=== PATIENT | female | born 1980 | race Caucasian/White ===

== ENCOUNTER 2020-11-06 08:18 | Inpatient (IN) ==
[2020-11-06] MEDS ORDERED: Buffered Lidocaine 1% SYRIN 1 ml INTRADERM ONE (08:48)
[2020-11-06] MEDS ORDERED: Lactated Ringers 1000 ml BAG 1,000 ML IV ONE (08:48)
[2020-11-06 13:58] LABS: Urine Benzodiazepine Screen None Detected (None Detect); Urine Cannabinoids Screen Presumptive Positive (None Detect); Urine Opiates Screen None Detected (None Detect)
[2020-11-06] MEDS ORDERED: Dinoprostone 10 MG VAG.SUPP VAGINAL ONE (21:27)
[2020-11-06] MEDS ORDERED: Promethazine INJ(RESTRICTED) 25 MG/ML 1 ml VIAL IM PRN (23:44)
[2020-11-06] MEDS ORDERED: Morphine 10 MG/ML VIAL (1 ml) IM ONE (23:45)
[2020-11-07 09:32] LABS: ABS Lymphocytes 1.2 10^3/ul (1.0-4.8); ABS Monocytes 0.7 10^3/ul (0-0.8); ABS Neutrophils 11.7 10^3/ul (1.5-7.7); Eosinophil % 0.4 %; Hematocrit 37 % (35-47); Hemoglobin 12.8 g/dL (12.0-16.0); Lymphocyte % 8.4 %; Mean Corpuscular HGB Conc 34 g/dL (31-36); Mean Corpuscular Hemoglobin 33 pg (27-31); Mean Corpuscular Volume 95 fL (80-97); Mean Platelet Volume 10.1 fL (7.4-10.4); Platelet Count 161 10^3/uL (150-450); Red Blood Count 3.94 10^6 /uL (3.70-4.87); Red Cell Distribution Width 14 % (10-15); White Blood Count 13.7 10^3/uL (3.5-10.8)
[2020-11-07] MEDS: Oxytocin in LR 20 UNITS/1,000 ML BAG IVPB SCH (10:11)
[2020-11-07] MEDS ORDERED: Promethazine INJ(RESTRICTED) 25 MG/ML 1 ml VIAL ONE (23:30)
[2020-11-07] MEDS ORDERED: Morphine 10 MG/ML VIAL (1 ml) ONE (23:30)
[2020-11-07] MEDS ORDERED: Morphine 10 MG/ML VIAL (1 ml) IV ONE (23:35)
[2020-11-07] MEDS ORDERED: Promethazine INJ(RESTRICTED) 25 MG/ML 1 ml VIAL IV PRN (23:35)
[2020-11-08] MEDS: Lactated Ringers 1000 ml BAG 1,000 ML IV SCH ×2 (10:24→21:00)
[2020-11-08] MEDS: Oxytocin in LR 20 UNITS/1,000 ML BAG IVPB SCH (10:35)
[2020-11-08] MEDS: Lidocaine 2% JELLY 6 ML TOPICAL ONE (17:04)
[2020-11-08] MEDS ORDERED: OBEPIDURAL 250 ML EPIDURAL ONE (20:17)
[2020-11-08 20:37] LABS: ABS Eosinophils 0.1 10^3/ul (0-0.6); ABS Lymphocytes 1.2 10^3/ul (1.0-4.8); ABS Monocytes 0.7 10^3/ul (0-0.8); ABS Neutrophils 6.1 10^3/ul (1.5-7.7); Eosinophil % 1.1 %; Hematocrit 37 % (35-47); Hemoglobin 13.2 g/dL (12.0-16.0); Lymphocyte % 14.7 %; Mean Corpuscular HGB Conc 36 g/dL (31-36); Mean Corpuscular Hemoglobin 33 pg (27-31); Mean Corpuscular Volume 94 fL (80-97); Mean Platelet Volume 9.7 fL (7.4-10.4); Platelet Count 153 10^3/uL (150-450); Red Blood Count 3.95 10^6 /uL (3.70-4.87); Red Cell Distribution Width 14 % (10-15); White Blood Count 8.1 10^3/uL (3.5-10.8)
[2020-11-08] MEDS ORDERED: Sodium Citrate/Citric Acid LIQ 15 ML UDC PO PRN (21:56)
[2020-11-08] MEDS ORDERED: Phenylephrine 40 mcg/mL 10mL (400mcg) SYRINGE IV PUSH PRN ×2 (21:56)
[2020-11-08] MEDS ORDERED: EPHEDrine (Pressors) 50 MG/ML VIAL IV PUSH PRN ×2 (21:56)
[2020-11-08] MEDS ORDERED: Lactated Ringers 1000 ml BAG 1,000 ML IV ONE (21:56)
[2020-11-08] MEDS ORDERED: OBEPIDURAL 250 ML EPIDURAL SCH (22:00)
[2020-11-09] MEDS ORDERED: Witch Hazel PAD JAR ONE (00:53)
[2020-11-09] MEDS ORDERED: Dibucaine 1% OINT 28.35 GM TUBE ONE (00:53)
[2020-11-09] MEDS: Lactated Ringers 1000 ml BAG 1,000 ML IV SCH ×4 (03:45→20:49)
[2020-11-09] MEDS ORDERED: fentaNYL 100 mcg/2 ml 50 MCG/ML VIAL IV SLOW PU ONE (10:34)
[2020-11-09] MEDS ORDERED: Lidocaine 2% JELLY 6 ML TOPICAL ONE ×3 (10:35→20:30)
[2020-11-09] MEDS: Oxytocin in LR 20 UNITS/1,000 ML BAG IVPB SCH (11:52)
[2020-11-09] MEDS: Lidocaine 2% JELLY 6 ML TOPICAL ONE (20:00)
[2020-11-10] MEDS: fentaNYL 100 mcg/2 ml 50 MCG/ML VIAL ONE ×2 (02:30→06:35)
[2020-11-10] MEDS: Lactated Ringers 1000 ml BAG 1,000 ML IV SCH (05:40)
[2020-11-10] MEDS ORDERED: fentaNYL 100 mcg/2 ml 50 MCG/ML VIAL ONE (06:31)
[2020-11-10] MEDS ORDERED: Lidocaine 2% JELLY 6 ML TOPICAL ONE (06:40)
[2020-11-10] MEDS: Lidocaine 2% JELLY 6 ML TOPICAL SCH ×2 (10:19→13:00)
[2020-11-10] MEDS ORDERED: ceFOXitin 2 GM IVPREMIX 2 GM/50 ML BAG IVPB ONE (15:49)
[2020-11-10] MEDS ORDERED: Buffered Lidocaine 1% SYRIN 1 ml INTRADERM ONE (15:50)
[2020-11-10] MEDS ORDERED: Chloroprocaine 3% 20 ml VIAL ONE (16:17)
[2020-11-10] MEDS ORDERED: Lidocaine 2% w/ EPI 1:200,000 MPF 20 ML SDV VIAL ONE (16:17)
[2020-11-10] MEDS ORDERED: Oxytocin 10 UNITS/ML 1 ML VIAL ONE (16:22)
[2020-11-10 16:41] LABS: ABS Lymphocytes 0.7 10^3/ul (1.0-4.8); ABS Neutrophils 16.9 10^3/ul (1.5-7.7); Hematocrit 38 % (35-47); Hemoglobin 13.2 g/dL (12.0-16.0); Lymphocyte % 3.7 %; Mean Corpuscular HGB Conc 34 g/dL (31-36); Mean Corpuscular Hemoglobin 32 pg (27-31); Mean Corpuscular Volume 93 fL (80-97); Platelet Count 178 10^3/uL (150-450); Red Blood Count 4.12 10^6 /uL (3.70-4.87); Red Cell Distribution Width 14 % (10-15); White Blood Count 18.7 10^3/uL (3.5-10.8)
[2020-11-10 16:47] LABS: Albumin 2.8 g/dL (3.2-5.2); Albumin/Globulin Ratio 1.1 (1-3); BUN/Creatinine Ratio 7.3 (8-20); Calcium 8.4 mg/dL (8.6-10.3); EGFR African American 67.6 (>60); EGFR Non-African American 55.9 (>60); Globulin 2.6 g/dL (2-4); Potassium 4.4 mmol/L (3.5-5.0); Total Bilirubin 0.4 mg/dL (0.2-1.0); Total Protein 5.4 g/dL (6.4-8.9)
[2020-11-10] MEDS ORDERED: Acetaminophen IV 1 GM/100ML 100 ML ONE (17:31)
[2020-11-10] MEDS ORDERED: diPHENhydraMINE IV 50 MG/ML 1 ml VIAL (BENADRYL) IV PRN ×2 (17:33→17:49)
[2020-11-10] MEDS ORDERED: DiMENhydriNATE IV 50 mg/ml 1 ml VIAL IV PUSH PRN ×2 (17:33→17:49)
[2020-11-10] MEDS ORDERED: Ondansetron 4 mg VIAL 2 MG/ML 2 ml VIAL IV PRN ×2 (17:33→17:49)
[2020-11-10] MEDS ORDERED: Naloxone 0.4 mg VIAL 0.4 mg/ml 1 ml VIAL IV PRN ×2 (17:33→17:49)
[2020-11-10] MEDS ORDERED: Levalbuterol 0.63MG/3ML NEB UNIT OF USE INH PRN (17:33)
[2020-11-10] MEDS ORDERED: fentaNYL 100 mcg/2 ml 50 MCG/ML VIAL IV PRN (17:33)
[2020-11-10] MEDS ORDERED: Morphine PF AMP (0.5MG/ML) 5 MG/10 ML AMP ONE (17:38)
[2020-11-10] MEDS ORDERED: Witch Hazel PAD JAR TOPICAL PRN (18:04)
[2020-11-10] MEDS ORDERED: Lactated Ringers 1000 ml BAG 1,000 ML IV SCH (19:00)
[2020-11-10] MEDS: HYDROcodone/ACETAMIN 5/325 mg TAB PO PRN (21:35)
[2020-11-11] MEDS: HYDROcodone/ACETAMIN 5/325 mg TAB PO PRN (02:48)
[2020-11-11 08:12] LABS: ABS Basophils 0.1 10^3/ul (0-0.2); ABS Lymphocytes 0.8 10^3/ul (1.0-4.8); ABS Neutrophils 15.6 10^3/ul (1.5-7.7); Eosinophil % 0.2 %; Hematocrit 34 % (35-47); Hemoglobin 11.5 g/dL (12.0-16.0); Lymphocyte % 4.8 %; Mean Corpuscular HGB Conc 34 g/dL (31-36); Mean Corpuscular Hemoglobin 32 pg (27-31); Mean Corpuscular Volume 95 fL (80-97); Mean Platelet Volume 9.7 fL (7.4-10.4); Platelet Count 150 10^3/uL (150-450); Red Cell Distribution Width 14 % (10-15); White Blood Count 17.5 10^3/uL (3.5-10.8)
[2020-11-11] MEDS: Lidocaine 2% JELLY 6 ML TOPICAL SCH ×2 (14:21→14:31)
[2020-11-11 16:42] LABS: Urine Appearance Cloudy; Urine Bilirubin Negative (Negative); Urine Blood 2+ (Negative); Urine Color Amber; Urine Glucose Negative (Negative); Urine Ketones Negative (Negative); Urine Nitrite Negative (Negative); Urine Protein 2+(100 mg/dL) (Negative); Urine Specific Gravity 1.016 (1.010-1.030); Urine Urobilinogen Negative (Negative)
[2020-11-11 16:45] LABS: Urine Bacteria Absent (Absent); Urine Granular Casts Present (Absent); Urine Red Blood Cell 3+(>10/hpf) (Absent); Urine Squamous Epithelial Cell Present (Absent); Urine White Blood Cell 3+(>20/hpf) (Absent)
[2020-11-12] MEDS: Lidocaine 2% JELLY 6 ML TOPICAL SCH ×2 (19:49→22:08)
[2020-11-13 08:13] VITALS: BP 135/83
== END 2020-11-13 14:17 | disposition home or self-care (01) | DRG 540 ==
LOC: MCHOBOUT 08:18 → MCHOB 09:31
PROVIDERS: ADMIT Midwife; ATTEND Obstetrics & Gynecology